=== PATIENT | male | born 1955 | race Caucasian/White ===

== ENCOUNTER 2023-02-01 17:27 | Emergency (ER) | payer OTHER ==
[~2023-02-01] VITALS: Ht 167.6 cm; Wt 78.6 kg
[2023-02-01 17:58] VITALS: BP 168/81; PULSE 52; RESP 20; TEMP 97.6; O2SAT 97
[2023-02-01] MEDS ORDERED: FLUORESCEIN OPTH STRIP 1 MG OP ONE (19:10)
[2023-02-01] MEDS ORDERED: TETRACAINE HCL/PF 0.5% OPTH 4 ML BTL OP ONE (19:10)
--- NOTE | 2023-02-01 19:25 | NUR ---
Dr. Mathews examining patient at bedside.
[2023-02-01 19:30] VITALS: BP 168/81; PULSE 52; RESP 20; TEMP 97.6; O2SAT 97
--- NOTE | 2023-02-01 19:40 | NUR ---
Patient is a 67/M who came in due to left eye pain, burning, 5/10 x 2 weeks ago. No discharge, vision changes or fever noted. PMHx: Denies NKA
--- NOTE | 2023-02-01 20:00 | NUR ---
Patient discharged. Written and verbal after care instructions given and explained. Patient verbalized understanding. Ambulatory with steady gait. All questions addressed prior to discharge. Advised to follow up with PMD.
[2023-02-01] MEDS ORDERED: DIPH25TA53 PO (20:02)
== END 2023-02-01 20:00 | disposition home or self-care (01) ==
LOC: MED 17:27
DX: S05.02XA Injury of conjunctiva and corneal abrasion without foreign body, left eye, initial encounter (principal); X58.XXXA Exposure to other specified factors, initial encounter; Y93.89 Activity, other specified; Y92.89 Other specified places as the place of occurrence of the external cause; Y99.8 Other external cause status
CPT/HCPCS: 99284